=== PATIENT | male | born 1960 | race Caucasian/White ===

== ENCOUNTER 2016-09-11 12:54 | Emergency (ER) | payer MEDICAID ==
[~2016-09-11] VITALS: Ht 165.1 cm; Wt 85.0 kg
[2016-09-11] MEDS ORDERED: ANTIHYPERTENSIVE PO (13:15)
[2016-09-11] MEDS ORDERED: SILVER NITRATE APPLICATOR 1 EA STICK TP ONE ×2 (13:29→13:30)
[2016-09-11] MEDS ORDERED: HYDROCODONE/ACETAMINOPHEN 5-325 MG TABLET PO ONE (13:45)
[2016-09-11 14:58] VITALS: BP 151/96
== END 2016-09-11 15:24 | disposition home or self-care (01) ==
LOC: EMS 12:55
DX: S00.411A Abrasion of right ear, initial encounter (principal); I10 Essential (primary) hypertension; E78.00 Pure hypercholesterolemia, unspecified; X58.XXXA Exposure to other specified factors, initial encounter; Y93.89 Activity, other specified; Y92.89 Other specified places as the place of occurrence of the external cause; Y99.8 Other external cause status
CPT/HCPCS: 99283; Z7610

== ENCOUNTER 2016-11-22 20:52 | Emergency (ER) | payer MEDICAID ==
[~2016-11-22] VITALS: Ht 167.6 cm; Wt 87.0 kg
[~2016-11-22 20:52] MED LIST: ANTIHYPERTENSIVE PO
[2016-11-22] MEDS ORDERED: ASPI-1093 PO (21:11)
[2016-11-22 21:30] LABS: BASOPHILS % (AUTO) 0.7 % (0.0-2.0); EOSINOPHILS % (AUTO) 1.1 % (1.0-6.0); HEMATOCRIT 48.8 % (41-53); HEMOGLOBIN 15.7 g/dL (13.5-17.5); LYMPHOCYTES # (AUTO) 2.8 K/uL (1.0-4.8); LYMPHOCYTES % (AUTO) 21.1 % (22.0-44.0); MEAN CORPUSCULAR HEMOGLOBIN 29.7 pg (26.0-34.0); MEAN CORPUSCULAR HGB CONC 32.2 G/dL (31.0-37.0); MEAN CORPUSCULAR VOLUME 92 fL (80-100); MONOCYTES # (AUTO) 1.5 K/uL (0.1-1.0); MONOCYTES % (AUTO) 11.6 % (2.0-9.0); NEUTROPHILS # (AUTO) 8.7 K/uL (1.8-7.7); NEUTROPHILS % (AUTO) 65.5 % (40.0-70.0); PLATELET COUNT (AUTO) 181 K/uL (150-450); RED BLOOD CELL COUNT(AUTO) 5.29 MIL/uL (4.50-5.90); WHITE BLOOD COUNT (AUTO) 13.2 K/uL (4.5-11.0)
[2016-11-22 21:39] LABS: CALCIUM, TOTAL 8.6 mg/dL (8.8-10.5); CREATININE 1.25 mg/dL (0.60-1.30); POTASSIUM 3.8 mmol/L (3.5-5.1)
[2016-11-22 21:46] LABS: ALBUMIN 3.4 g/dL (3.4-5.0); BILIRUBIN,TOTAL 0.8 mg/dL (0.1-1.0); TOTAL PROTEIN, SERUM 7.6 g/dL (6.4-8.2)
[2016-11-22 21:54] LABS: APPEARANCE,URINE CLEAR (CLEAR); GLUCOSE, URINE (UA) NEGATIVE (NEGATIVE); KETONES,URINE NEGATIVE (NEGATIVE); LEUKOCYTE ESTERASE ,URINE NEGATIVE (NEGATIVE); OCCULT BLOOD,URINE TRACE (NEGATIVE); PROTEIN,URINE TRACE (NEGATIVE)
[2016-11-22 21:57] LABS: ADD UA MICROSCOPIC YES
[2016-11-22] MEDS ORDERED: SODIUM CHLORIDE 0.9% 1,000 ML IV ONE (22:00)
[2016-11-22] MEDS ORDERED: MORPHINE SULFATE 4 MG/ML SYRINGE IVP ONE (22:00)
[2016-11-22] MEDS ORDERED: ONDANSETRON HCL 4 MG/2 ML VIAL IVP ONE (22:00)
[2016-11-22 22:01] LABS: SQUAMOUS EPITHELIAL CELL,UR Rare /LPF (None Seen)
[2016-11-22 22:06] LABS: PROTHROMBIN TIME 10.3 SEC (9.4-11.6)
[2016-11-22] MEDS ORDERED: BARIUM SULFATE 0.1% SUSPENSION 450 ML BOTTLE PO ONE (22:15)
[2016-11-22] MEDS ORDERED: IOVERSOL 350 MG/ML 100 ML VIAL ONE (22:50)
[2016-11-22] MEDS ORDERED: SODIUM CHLORIDE 0.9% 100 ML ONE (22:50)
[2016-11-23] MEDS ORDERED: IOVERSOL 320 MG/ML 100 ML VIAL ONE (00:10)
[2016-11-23 01:58] VITALS: BP 102/72
[2016-11-23] MEDS ORDERED: MetroNIDAZOLE 250 MG TABLET PO ONE (02:15)
[2016-11-23] MEDS ORDERED: MORPHINE SULFATE 4 MG/ML SYRINGE IVP ONE (02:15)
[2016-11-23] MEDS ORDERED: ACETAMINOPHEN 325 MG TABLET PO ONE (02:15)
[2016-11-23] MEDS ORDERED: CIPROFLOXACIN HCL 250 MG TABLET PO ONE (02:15)
[2016-11-23] MEDS ORDERED: OxyCODONE HCL/ACETAMINOPHEN 5-325 MG TABLET PO ONE (02:30)
== END 2016-11-23 02:30 | disposition home or self-care (01) ==
LOC: EMS 20:53
DX: K57.92 Diverticulitis of intestine, part unspecified, without perforation or abscess without bleeding (principal); I11.9 Hypertensive heart disease without heart failure; E78.00 Pure hypercholesterolemia, unspecified; Z79.82 Long term (current) use of aspirin
CPT/HCPCS: 36415; 74177; 80053; 81001; 83690; 85025; 85610; 96361; 96374; 96375; 99285; J2270; J2405; J7030; J7050; Q9967 ×2; Z7610

== ENCOUNTER 2017-02-05 06:56 | Emergency (ER) | payer MEDICAID ==
[~2017-02-05] VITALS: Ht 170.2 cm; Wt 100.0 kg
[~2017-02-05 06:56] MED LIST changes: +ASPI-1093 PO
[2017-02-05] MEDS ORDERED: LISI1TAB9 PO (07:04)
[2017-02-05] MEDS ORDERED: ATOR20TA65 PO (07:04)
[2017-02-05] MEDS ORDERED: HYDR-3965 PO (07:04)
[2017-02-05 08:59] VITALS: BP 139/89
[2017-02-08] MEDS ORDERED: HYDR-309 PO (18:15)
[2017-02-08] MEDS ORDERED: LEVO250 PO (18:16)
== END 2017-02-05 09:20 | disposition home or self-care (01) ==
LOC: EMS 06:57
DX: S33.9XXA Sprain of unspecified parts of lumbar spine and pelvis, initial encounter (principal); E78.00 Pure hypercholesterolemia, unspecified; I10 Essential (primary) hypertension; I11.9 Hypertensive heart disease without heart failure; I51.9 Heart disease, unspecified; Z79.82 Long term (current) use of aspirin; X58.XXXA Exposure to other specified factors, initial encounter; Y93.89 Activity, other specified; Y92.002 Bathroom of unspecified non-institutional (private) residence as the place of occurrence of the external cause; Y99.9 Unspecified external cause status
CPT/HCPCS: 99283

== ENCOUNTER 2017-06-21 14:37 | Emergency (ER) | payer MEDICAID ==
[~2017-06-21] VITALS: Ht 160 cm; Wt 79.5 kg
[~2017-06-21 14:37] MED LIST changes: -ANTIHYPERTENSIVE PO; -ASPI-1093 PO; +ASPI-1182 PO; +ATOR20TA65 PO; +HYDR-309 PO; +LEVO250 PO; +LISI1TAB9 PO
[2017-06-21] MEDS ORDERED: IBUPROFEN 600 MG TABLET PO ONE (17:00)
[2017-06-21] MEDS ORDERED: ALBUTEROL SULFATE 2.5 MG/0.5 ML NEB SOLUTION NEB ONE (17:10)
[2017-06-21 17:16] LABS: INFLUENZA TYPE B NEGATIVE FOR TYPE B (NEGATIVE)
[2017-06-21] MEDS ORDERED: 0.9% SODIUM CHLORIDE 5 ML NEB SOLUTION NEB ONE (17:19)
[2017-06-21 17:50] VITALS: BP 135/90
== END 2017-06-21 17:58 | disposition home or self-care (01) ==
LOC: EMS 14:38
DX: J40 Bronchitis, not specified as acute or chronic (principal)
CPT/HCPCS: 71010; 87804; 93005; 94640; 99285; J7613

== ENCOUNTER 2018-01-30 16:50 | Emergency (ER) | payer MEDICAID ==
[~2018-01-30] VITALS: Ht 167.6 cm; Wt 84.1 kg
[~2018-01-30 16:50] MED LIST changes: -HYDR-309 PO; -LEVO250 PO
[2018-01-30 17:44] LABS: BASOPHILS % (AUTO) 1.1 % (0.0-2.0); EOSINOPHILS % (AUTO) 2.3 % (1.0-6.0); HEMATOCRIT 48.2 % (41-53); HEMOGLOBIN 16.5 g/dL (13.5-17.5); LYMPHOCYTES # (AUTO) 2.7 K/uL (1.0-4.8); LYMPHOCYTES % (AUTO) 38.6 % (22.0-44.0); MEAN CORPUSCULAR HEMOGLOBIN 31.5 pg (26.0-34.0); MEAN CORPUSCULAR HGB CONC 34.2 G/dL (31.0-37.0); MEAN CORPUSCULAR VOLUME 92 fL (80-100); MONOCYTES # (AUTO) 0.7 K/uL (0.1-1.0); MONOCYTES % (AUTO) 10.2 % (2.0-9.0); NEUTROPHILS # (AUTO) 3.4 K/uL (1.8-7.7); NEUTROPHILS % (AUTO) 47.8 % (40.0-70.0); PLATELET COUNT (AUTO) 196 K/uL (150-450); RED BLOOD CELL COUNT(AUTO) 5.23 MIL/uL (4.50-5.90); RED CELL DISTRIBUTION WIDTH 14.1 % (11.5-14.5)
[2018-01-30 17:47] LABS: ANION GAP 9 mmol/L (8-16); CALCIUM, TOTAL 8.7 mg/dL (8.8-10.5); CARBON DIOXIDE 27 mmol/L (22-29); CHLORIDE 106 mmol/L (98-107); CREATININE 1.01 mg/dL (0.60-1.30); GLOMERULAR FILTR. RATE CALC > 60 mL/min (>60); GLUCOSE,RANDOM 97 mg/dL (70-110); POTASSIUM 4.4 mmol/L (3.5-5.1); SODIUM SERUM 142 mmol/L (136-145); UREA NITROGEN, BLOOD 10 mg/dL (7-18)
[2018-01-30 17:50] LABS: ALANINE AMINOTRANSFERASE 46 U/L (12-78); ALBUMIN 3.5 g/dL (3.4-5.0); ALKALINE PHOSPHATASE 119 U/L (46-116); ASPARTATE AMINOTRANSFERASE 26 U/L (15-37); BILIRUBIN,TOTAL 0.4 mg/dL (0.1-1.0); LIPASE 171 U/L (73-393); TOTAL PROTEIN, SERUM 7.2 g/dL (6.4-8.2)
[2018-01-30 20:04] LABS: APPEARANCE,URINE CLEAR (CLEAR); BILIRUBIN,URINE NEGATIVE (NEGATIVE); GLUCOSE, URINE (UA) NEGATIVE (NEGATIVE); KETONES,URINE NEGATIVE (NEGATIVE); LEUKOCYTE ESTERASE ,URINE NEGATIVE (NEGATIVE); NITRATE,URINE NEGATIVE (NEGATIVE); OCCULT BLOOD,URINE NEGATIVE (NEGATIVE); PH,URINE 5.5 (5.0-8.0); PROTEIN,URINE NEGATIVE (NEGATIVE); UROBILINOGEN,URINE 0.2 mg/dL (<=1.0)
[2018-01-30 22:30] VITALS: BP 159/99
== END 2018-01-30 22:41 | disposition home or self-care (01) ==
LOC: EMS 16:50
DX: R10.9 Unspecified abdominal pain (principal); K62.89 Other specified diseases of anus and rectum
CPT/HCPCS: 99284

== ENCOUNTER 2023-08-27 07:13 | Inpatient (IN) | payer MEDICAID, OTHER ==
[~2023-08-27] VITALS: Ht 172.7 cm; Wt 86.8 kg
[~2023-08-27 07:13] MED LIST changes: -ASPI-1182 PO; +ASPI-1444 PO
[2023-08-27] MEDS ORDERED: DEXAMETHASONE SOD PHOS 4 MG/ML 5 ML VIAL IVP ONE (07:30)
[2023-08-27 07:47] LABS: BASOPHILS % (AUTO) 0.6 % (0.0-2.0); EOSINOPHILS % (AUTO) 1.3 % (1.0-6.0); HEMATOCRIT 44.2 % (41-53); HEMOGLOBIN 15.1 g/dL (13.5-17.5); LYMPHOCYTES # (AUTO) 4.1 K/uL (1.0-4.8); LYMPHOCYTES % (AUTO) 48.4 % (22.0-44.0); MEAN CORPUSCULAR HEMOGLOBIN 31.1 pg (26.0-34.0); MEAN CORPUSCULAR HGB CONC 34.1 G/dL (31.0-37.0); MEAN CORPUSCULAR VOLUME 91 fL (80-100); MONOCYTES # (AUTO) 1.2 K/uL (0.1-1.0); MONOCYTES % (AUTO) 13.6 % (2.0-9.0); NEUTROPHILS # (AUTO) 3.1 K/uL (1.8-7.7); NEUTROPHILS % (AUTO) 36.1 % (40.0-70.0); PLATELET COUNT (AUTO) 251 K/uL (150-450); RED BLOOD CELL COUNT(AUTO) 4.85 MIL/uL (4.50-5.90); RED CELL DISTRIBUTION WIDTH 13.9 % (11.5-14.5); WHITE BLOOD COUNT (AUTO) 8.5 K/uL (4.5-11.0)
[2023-08-27 07:57] LABS: CALCIUM, TOTAL 8.7 mg/dL (8.8-10.5); CREATININE 1.3 mg/dL (0.60-1.30); POTASSIUM 3.1 mmol/L (3.5-5.1)
[2023-08-27 08:08] LABS: ALBUMIN 3.4 g/dL (3.4-5.0); BILIRUBIN,TOTAL 0.3 mg/dL (0.1-1.0); TOTAL PROTEIN, SERUM 7.3 g/dL (6.4-8.2)
[2023-08-27 12:00] VITALS: BP 118/80; PULSE 63; RESP 18; TEMP 97.7; O2SAT 99
[2023-08-27] MEDS ORDERED: HYDROCODONE/ACETAMINOPHEN 5-325 MG TABLET PO PRN (13:15)
[2023-08-27] MEDS ORDERED: MORPHINE SULFATE 2 MG/ML SYRINGE IVP PRN (13:15)
[2023-08-27] MEDS ORDERED: ZOLPIDEM TARTRATE 5 MG TABLET PO PRN (13:15)
[2023-08-27] MEDS ORDERED: ONDANSETRON HCL 4 MG/2 ML VIAL IVP PRN (13:15)
[2023-08-27] MEDS ORDERED: MAGNESIUM HYDROXIDE SUSPENSION 30 ML UDCUP PO PRN (13:15)
[2023-08-27] MEDS ORDERED: BISACODYL 10 MG RECTAL RECTAL SUPPOSITORY PR PRN (13:15)
[2023-08-27] MEDS ORDERED: ACETAMINOPHEN 325 MG TABLET PO PRN (13:15)
[2023-08-27] MEDS: DiphenhydrAMINE HCL 50 MG/ML VIAL IVP SCH (13:57)
[2023-08-27 16:00] VITALS: BP 123/66; PULSE 68; RESP 18; TEMP 98; O2SAT 97
[2023-08-27] MEDS: HEPARIN SODIUM,PORCINE 5,000 UNITS/ML VIAL SQ SCH (16:44)
[2023-08-27] MEDS: MethylPREDNISolone SOD SUCC 40 MG/ML VIAL IVP SCH (16:44)
[2023-08-27] MEDS ORDERED: POTASSIUM CHLORIDE 20 MEQ ER TABLET PO ONE (16:45)
[2023-08-27 20:10] VITALS: BP 142/60; PULSE 74; RESP 19; TEMP 98.3
[2023-08-27] MEDS: FAMOTIDINE 20 MG/2 ML VIAL IVP SCH (21:18)
[2023-08-27] MEDS: DOCUSATE SODIUM 100 MG CAPSULE PO SCH (21:18)
[2023-08-28 00:19] VITALS: BP 129/74; PULSE 71; RESP 18; TEMP 98
[2023-08-28] MEDS: HEPARIN SODIUM,PORCINE 5,000 UNITS/ML VIAL SQ SCH ×3 (00:55→16:00)
[2023-08-28] MEDS: MethylPREDNISolone SOD SUCC 40 MG/ML VIAL IVP SCH ×3 (00:55→16:00)
[2023-08-28] MEDS: DiphenhydrAMINE HCL 50 MG/ML VIAL IVP SCH ×2 (00:56→13:31)
[2023-08-28 05:27] VITALS: BP 133/78; PULSE 70; RESP 18; TEMP 97.8
[2023-08-28] MEDS: DOCUSATE SODIUM 100 MG CAPSULE PO SCH (07:46)
[2023-08-28] MEDS: FAMOTIDINE 20 MG/2 ML VIAL IVP SCH (07:47)
[2023-08-28 07:50] VITALS: BP 120/80; PULSE 66; RESP 18; TEMP 98
[2023-08-28] MEDS ORDERED: ATORVASTATIN CALCIUM 20 MG TABLET PO SCH (09:00)
[2023-08-28] MEDS ORDERED: AmLODIPine BESYLATE 10 MG TABLET PO SCH (09:00)
[2023-08-28] MEDS ORDERED: PANTOPRAZOLE SODIUM 40 MG DR TABLET PO SCH (09:00)
[2023-08-28] MEDS ORDERED: ASPIRIN 81 MG DR TABLET PO SCH (09:00)
[2023-08-28 10:51] VITALS: BP 111/70; PULSE 74; RESP 18; TEMP 98
[2023-08-28] MEDS ORDERED: FAMO20 PO (12:04)
[2023-08-28] MEDS ORDERED: AMLO-258 PO (12:04)
[2023-08-28] MEDS ORDERED: PRED-729 PO (12:04)
[2023-08-29 07:06] LABS: HEPATITIS C AB (EIA) Non Reactive (Non Reactive)
== END 2023-08-28 16:10 | disposition home or self-care (01) | DRG 811 ==
LOC: EMS 07:13 → AHU 09:29 → 5S 10:33
PROVIDERS: ADMIT Internal Medicine; ATTEND Internal Medicine
DX: T78.3XXA Angioneurotic edema, initial encounter (principal); E78.5 Hyperlipidemia, unspecified; E87.6 Hypokalemia; I10 Essential (primary) hypertension; T44.5X5A Adverse effect of predominantly beta-adrenoreceptor agonists, initial encounter; Y84.8 Other medical procedures as the cause of abnormal reaction of the patient, or of later complication, without mention of misadventure at the time of the procedure; Y92.89 Other specified places as the place of occurrence of the external cause; Z79.82 Long term (current) use of aspirin; Z79.899 Other long term (current) drug therapy; Z88.8 Allergy status to other drugs, medicaments and biological substances
CPT/HCPCS: 71045; 80053; 84132; 85025; 86803; 87340; 93005; 99285; J1200; J1644; J2920; J3490; 36415-L1; 36415-TC